=== PATIENT | male | born 1955 | race Caucasian/White ===

== ENCOUNTER 2018-06-16 20:42 | Emergency (ER) | payer SELFPAY ==
[~2018-06-16] VITALS: Ht 182.9 cm; Wt 90.0 kg
[2018-06-16 20:43] VITALS: BP 137/87
[2018-06-16] MEDS ORDERED: LIDOCAINE 2%, 10ML INFIL ONE (21:00)
[2018-06-16] MEDS ORDERED: DIPH,PERTUSS(ACELL),TET VAC/PF 0.5 ML IM-VACC ONE ×2 (21:00→21:49)
[2018-06-16] MEDS ORDERED: LIDOCAINE-MPF 1%, 5ML ONE (21:48)
== END 2018-06-16 22:16 | disposition left against medical advice (07) ==
LOC: ED 22:00
DX: S01.01XA Laceration without foreign body of scalp, initial encounter (principal); F10.10 Alcohol abuse, uncomplicated; W01.190A Fall on same level from slipping, tripping and stumbling with subsequent striking against furniture, initial encounter; Y93.89 Activity, other specified; Y99.8 Other external cause status; Y92.59 Other trade areas as the place of occurrence of the external cause
CPT/HCPCS: 12032; 99284